=== PATIENT | female | born 1995 | race African-American/Black ===

== ENCOUNTER 2022-05-22 07:08 | Emergency (ER) | payer OTHER ==
[~2022-05-22] VITALS: Ht 167.6 cm; Wt 133.8 kg
[2022-05-22] MEDS ORDERED: ZITHROMAX200 MG PO (11:05)
== END 2022-05-22 11:12 | disposition home or self-care (01) ==
LOC: ER 07:08
DX: A49.3 Mycoplasma infection, unspecified site (principal); J03.90 Acute tonsillitis, unspecified; Z20.822 Contact with and (suspected) exposure to COVID-19; Z88.6 Allergy status to analgesic agent